=== PATIENT | male | born 1990 | race Caucasian/White ===

== ENCOUNTER 2019-05-26 21:56 | Emergency (ER) | payer BC, OTHER ==
[2019-05-26 22:21] VITALS: BP 139/87
[2019-05-26 23:05] LABS: APPEARANCE,URINE SLIGHTLY-CLOUDY; BILIRUBIN,URINE NEGATIVE (NEGATIVE); COLOR,URINE YELLOW; GLUCOSE, URINE NEGATIVE (NEGATIVE); KETONES,URINE NEGATIVE (NEGATIVE); LEUKOCYTE ESTERASE,URINE NEGATIVE (NEGATIVE); NITRITE,URINE NEGATIVE (NEGATIVE); PROTEIN,URINE NEGATIVE (NEGATIVE); URINE SPECIFIC GRAVITY 1.017; UROBILINOGEN,URINE NEGATIVE mg/dL (<2.0)
[2019-05-26] MEDS ORDERED: ONDANSETRON ODT 4 MG TAB (6 TAB/ER DISP) PO PRN (23:33)
[2019-05-26] MEDS ORDERED: HYDROCODONE/ACETAMINOPHEN 5-325 MG (6 TAB/ER DISP) PO PRN (23:33)
--- NOTE | 2019-05-26 23:39 | ER Document Report ---
HPI - HPI Time Seen by Provider: 05/26/19 23:04 Pain Level: 1 Context: Patient is a 29-year-old male that comes emergency department for chief complaint of right flank pain. He states pain became severe this evening but started this morning, he denies pain with movement, denies injury. He denies fever, chills, nausea, vomiting. He does state intermittently he will get right-sided flank pain that resolves especially after urination. He states occasionally it hurts in his abdomen, earlier it was hurting in his lower abdomen but now symptoms has resolved. He states that when he was obtaining a urinalysis in the emergency department he heard a "plink" and he looked and there appeared to be a stone in the toilet. He has no confirmed history of kidney stones, he denies hematuria, however both his parents have a history of kidney stones. Patient admits to frequent energy drinks and tea. He denies any daily medications, only past medical history reported is appendectomy. He denies ever using recreational drugs. - CONSTITUTIONAL Constitutional: DENIES: Fever, Chills - GASTROINTESTINAL Gastrointestinal: REPORTS: Abdominal Pain - URINARY Urinary: DENIES: Dysuria Past Medical History - General Information source: Patient - Social History Smoking Status: Current Every Day Smoker Frequency of alcohol use: Rare Drug Abuse: None Lives with: Family Family History: Reviewed & Not Pertinent Patient has suicidal ideation: No Patient has homicidal ideation: No Past Surgical History: Reports: Hx Appendectomy - Immunizations Hx Diphtheria, Pertussis, Tetanus Vaccination: Yes Vertical Provider Document - CONSTITUTIONAL General Appearance: WD/WN, No Apparent Distress - INFECTION CONTROL TRAVEL OUTSIDE OF THE [place] IN LAST 30 DAYS: No - HEENT HEENT: Atraumatic, Normal ENT Exam, Normocephalic - NECK Neck: Normal Inspection - RESPIRATORY Respiratory: Breath Sounds Normal, No Respiratory Distress - CARDIOVASCULAR Cardiovascular: Regular Rate, Regular Rhythm - GI/ABDOMEN Gastrointestinal: Abdomen Soft, Abdomen Non-Tender. negative: Abdomen Tender - BACK Back: Normal Inspection - MUSCULOSKELETAL/EXTREMETIES Musculoskeletal/Extremeties: MAEW, FROM, Non-Tender - NEURO Level of Consciousness: Awake, Alert, Appropriate Motor/Sensory: No Motor Deficit, No Sensory Deficit - DERM Integumentary: Warm, Dry, No Rash Course - Re-evaluation Re-evalutation: Patient refers to the right CVA area for he had tenderness in the general lower abdomen but he has no current tenderness, no testicular pain, no current complaints, unremarkable physical exam, unremarkable vital signs. Urinalysis does show hematuria, I do suspect patient was passing a kidney stone but I believe he did pass this in the bathroom per his report. I offered CT of the abdomen pelvis to evaluate if he had additional stones (he has never had any imaging or confirmation for a stone) and if he still had ureterolithiasis. He did decline because of the expense. Feel this is appropriate because he does not have an infection. Patient will be treated for his symptoms, discussed urology follow-up, he is out of town and will follow-up with primary care and urology back home. Discussed return precautions in detail. Patient states understanding and agreement. Stable and well-appearing at time of discharge. - Vital Signs Vital signs: Temp Pulse Resp BP Pulse Ox 97.7 F 73 20 139/87 H 99 05/26/19 22:20 05/26/19 22:20 05/26/19 22:20 05/26/19 22:20 05/26/19 22:20 - Laboratory Laboratory results interpreted by me: 05/26/19 22:50 Urine Blood LARGE H Discharge - Discharge Clinical Impression: Right flank pain Hematuria Qualifiers: Hematuria type: other microscopic Qualified Code(s): R31.29 - Other microscopic hematuria Condition: Stable Disposition: HOME, SELF-CARE Additional Instructions: Your urine does show microscopic blood, based on this along with your symptoms and history I do strongly suspect that you have passed a kidney stone tonight. I recommend avoiding energy drinks, dark sodas, tea because of the high oxalate content which will increase the amount of stones you get. You have been provided with Toradol to take for pain which is nonsedating, you have also been provided with stronger pain medicine to take with precautions if needed over the next couple of days as you may experience spasms. Take the Zofran if needed for nausea. Follow-up with primary care and urology. Return if you worsen including severe worsening pain, vomiting, fever, or any other concerning symptoms. Prescriptions: Ketorolac Tromethamine [Toradol 10 mg Tablet] 10 mg PO Q8HP PRN #24 tablet PRN Reason: Hydrocodone/Acetaminophen [[place] 5-325 mg Tablet] 1 - 2 tab PO TID PRN #8 tablet PRN Reason: Ondansetron [Zofran Odt 4 mg Tablet] 1 - 2 tab PO Q4H PRN #15 tab.rapdis PRN Reason: For Nausea/Vomiting
== END 2019-05-26 23:48 | disposition home or self-care (01) ==
LOC: ER 21:56
DX: R10.9 Unspecified abdominal pain (principal); R31.29 Other microscopic hematuria; F17.200 Nicotine dependence, unspecified, uncomplicated; Z90.49 Acquired absence of other specified parts of digestive tract
CPT/HCPCS: 81001; 99283